=== PATIENT | male | born 1970 | race Two or more races ===

== ENCOUNTER 2019-07-27 17:45 | Emergency (ER) | payer MEDICAID ==
[~2019-07-27] VITALS: Ht 162.6 cm; Wt 65.8 kg
[2019-07-27 18:22] VITALS: BP 113/78
--- NOTE | 2019-07-27 18:22 | NUR ---
ED Nurse Note: pt ambulated into ED from home CO swollen and s/p infected palms bilaterally d/t washing hands with peroxide. PT vss no ss of distress noted. awaiting erpa.
--- NOTE | 2019-07-27 18:30 | NUR ---
ED Nurse Note: ERPA at bedside
--- NOTE | 2019-07-27 18:40 | Emergency Room Report ---
History of Present Illness General Chief Complaint: Upper Extremity Injury Source: Patient Present Illness HPI 48-year-old male with no segment past medical history here complaining of burning sensation in both palms and pain. Reports that he had some cuts in his fingers he decided to pour an entire hydrogen peroxide bottle on his hands to take care of the possible infection. Appears to be under the influence of unknown stimulant. Cellulitis and contact dermatitis noted on both palms. No pus drainage noted, denies any fever and chills. Has full range of motion of both hands. Denies any tingling sensation or numbness. Allergies: Coded Allergies: No Known Allergies (Unverified , 07/27/19) COVID-19 Screening Contact w/high risk pt: No Recent Travel to affected area: No Experienced COVID-19 symptoms?: No Patient History Past Medical History: see triage record Past Surgical History: none Pertinent Family History: none Immunizations: UTD Reviewed Nursing Documentation: PMH: Agreed; PSxH: Agreed Nursing Documentation-PMH Past Medical History: No Stated History Review of Systems All Other Systems: negative except mentioned in HPI Physical Exam Vital Signs Date Time Temp Pulse Resp B/P (MAP) Pulse Ox O2 Delivery O2 Flow Rate FiO2 07/27/19 18:12 97.3 106 20 113/78 (90) 98 Room Air Sp02 EP Interpretation: reviewed, normal General Appearance: no apparent distress, alert, GCS 15, non-toxic Head: normocephalic, atraumatic Eyes: bilateral eye normal inspection, bilateral eye PERRL ENT: hearing grossly normal, normal pharynx, no angioedema, normal voice Neck: full range of motion, supple/symm/no masses Respiratory: chest non-tender, lungs clear, normal breath sounds, no rhonchi, no retraction, no wheezing, speaking full sentences Cardiovascular #1: regular rate, rhythm, no edema, no murmur, normal capillary refill Gastrointestinal: non tender, soft, no mass Rectal: deferred Genitourinary: no CVA tenderness Musculoskeletal: back normal Neurologic: alert, motor strength/tone normal, oriented x3, sensory intact, responsive, speech normal Psychiatric: judgement/insight normal, memory normal, mood/affect normal, no suicidal/homicidal ideation Skin: other - Cellulitis and contact dermatitis of both palms Lymphatic: no adenopathy Medical Decision Making PA Attestation All diagnoses and treatment plans were reviewed and discussed with my supervising physician Dr. Wheatley Diagnostic Impression: Primary Impression: Allergic reaction Additional Impressions: Cellulitis Contact dermatitis ER Course 48-year-old male with no segment past medical history here complaining of burning sensation in both palms and pain. Reports that he had some cuts in his fingers he decided to pour an entire hydrogen peroxide bottle on his hands to take care of the possible infection. Appears to be under the influence of unknown stimulant. Cellulitis and contact dermatitis noted on both palms. No pus drainage noted, denies any fever and chills. Has full range of motion of both hands. Denies any tingling sensation or numbness. Ddx considered but are not limited to : Cellulitis, contact dermatitis, superficial infection, abscess Vital signs: are WNL, pt. is afebrile H&PE are most consistent with: Contact dermatitis cellulitis ORDERS: Triamcinolone cream, Keflex, Benadryl ED INTERVENTIONS: None required at this time. DISCHARGE: At this time pt. is stable for d/c to home. Will provide printed patient care instructions, and any necessary prescriptions. Care plan and follow up instructions have been discussed with the patient prior to discharge. At this time no prednisone advised due to coronavirus outbreak. Avoid using hydrogen peroxide as it is the cause of your contact dermatitis. Follow-up with your primary doctor, if worsening symptoms return to the emergency room Last Vital Signs Date Time Temp Pulse Resp B/P (MAP) Pulse Ox O2 Delivery O2 Flow Rate FiO2 07/27/19 18:12 97.3 106 20 113/78 (90) 98 Room Air Disposition: HOME, SELF-CARE Condition: Stable Scripts Diphenhydramine HCl (Benadryl) 25 Mg Capsule 25 MG PO TID, #14 CAP Prov: Brady Patel 07/27/19 Triamcinolone Acetonide (Triamcinolone Acetonide 0.5% Cream*) 15 Gm Cream..g. 2 GM TP TID, #15 GM Prov: Brady Patel 07/27/19 Cephalexin* (KEFLEX*) 500 Mg Capsule 500 MG ORAL EVERY 6 HOURS for 7 Days, #28 CAP Prov: Brady Patel 07/27/19 Patient Instructions: Allergies, [id number], Cellulitis, [id number], Contact Dermatitis, [id number] Additional Instructions: Avoid using hydrogen peroxide your hands, take medication as directed, follow- up with primary doctor, if worsening symptoms return to the emergency room Brady Patel Jul 27, 2019 18:40
[2019-07-27] MEDS ORDERED: CEPHALEXIN500 MG ORAL (18:42)
[2019-07-27] MEDS ORDERED: TRIAMCINOLONE A15 G1 TP (18:42)
[2019-07-27] MEDS ORDERED: BENADRYL25 M3 PO (18:42)
[2019-07-27 19:00] VITALS: BP 113/78
--- NOTE | 2019-07-27 19:00 | NUR ---
ER DISCHARGE NOTE: Patient is cleared to be discharged home per ERMD, pt is aox4, on room air, with stable vital signs. pt was given dc and prescription instructions, pt was able to verbalize understanding, pt id band. pt is able to ambulate with steady gait. pt took all belongings.
== END 2019-07-27 19:00 | disposition home or self-care (01) ==
LOC: EMR 18:29
DX: T78.40XA Allergy, unspecified, initial encounter (principal); X58.XXXA Exposure to other specified factors, initial encounter; L03.114 Cellulitis of left upper limb; L03.113 Cellulitis of right upper limb; L25.9 Unspecified contact dermatitis, unspecified cause
CPT/HCPCS: 99282